=== PATIENT | male | born 1940 | race Caucasian/White ===

== ENCOUNTER 2022-07-21 16:06 | Outpatient (CLI) | payer OTHER, SELFPAY | END 2022-07-21 16:07 | disposition home or self-care (01) | LOC: AMB 08-22 15:35 | PROVIDERS: Visit Provider Family Medicine | DX: U07.1 COVID-19 (principal); R19.7 Diarrhea, unspecified; R53.1 Weakness | CPT/HCPCS: A0425; A0427 ==

== ENCOUNTER 2022-08-02 10:37 | Outpatient (CLI) | payer OTHER, SELFPAY | END 2022-08-02 10:38 | disposition home or self-care (01) | LOC: AMB 09-23 16:12 | PROVIDERS: Visit Provider Family Medicine | DX: R53.1 Weakness (principal); Z20.822 Contact with and (suspected) exposure to COVID-19 | CPT/HCPCS: A0425; A0427 ==

== ENCOUNTER 2022-08-04 07:33 | Outpatient (CLI) | payer OTHER, SELFPAY | END 2022-08-04 07:34 | disposition home or self-care (01) | PROVIDERS: Visit Provider Family Medicine | DX: R53.1 Weakness (principal) | CPT/HCPCS: A0425; A0427 ==